=== PATIENT | male | born 1940 | race Two or more races ===

== ENCOUNTER 2023-09-10 12:49 | Outpatient (REF) | payer MEDICAID, SELFPAY ==
[2023-09-10 13:06] LABS: MANUAL DIFF FLAG NO
[2023-09-10 13:45] LABS: Basophils Absolute Auto 0.1 X10*3/uL (0.0-0.2); Basophils Percent Auto 0.9 % (0-2); Eosinophils Absolute Auto 0.2 X10*3/uL (0.0-0.4); Eosinophils Percent Auto 2.3 % (0-4); Hematocrit 35.7 % (42.0-52.0); Hemoglobin 12.7 g/dl (14.0-18.0); Imm Gran Abs Auto 0.04 X10*3/uL (0.00-0.03); Imm Gran Pct Auto 0.6 % (0.0-0.4); Lymphocytes Absolute Auto 1.5 X10*3/uL (1.2-4.9); Lymphocytes Percent Auto 22.3 % (20-40); Mean Corpuscular HGB Conc 35.6 g/dl (31.0-36.0); Mean Corpuscular Hemoglobin 31.3 pg (27.0-33.0); Mean Corpuscular Volume 87.9 fL (80.0-98.0); Mean Platelet Volume 9.1 fL (9.4-12.4); Monocytes Absolute Auto 0.9 X10*3/uL (0.1-1.2); Monocytes Percent Auto 12.8 % (2-11); Neutrophils Absolute Auto 4.2 x10*3/uL (2.0-8.3); Neutrophils Percent Auto 61.1 % (45-73); Platelet Count 243 X10*3/uL (160-400); Red Blood Count 4.06 X10*6/uL (4.60-5.80); Red Cell Distribution Width 13.2 % (11.0-16.0); White Blood Count 6.8 X10*3/uL (4.8-10.8)
== END 2023-09-10 12:50 | disposition home or self-care (01) ==
LOC: HO.LAB 12:49
PROVIDERS: Visit Provider Psychiatry & Neurology Neurology
DX: G70.00 Myasthenia gravis without (acute) exacerbation (principal)
CPT/HCPCS: 36415; 85025

== ENCOUNTER 2024-07-02 15:09 | Outpatient (REF) | payer MEDICAID, SELFPAY ==
[2024-07-02 15:42] LABS: MANUAL DIFF FLAG NO
[2024-07-02 15:50] LABS: Basophils Percent Auto 0.5 % (0-2); Eosinophils Absolute Auto 0.3 X10*3/uL (0.0-0.4); Eosinophils Percent Auto 4.6 % (0-4); Hematocrit 35.6 % (42.0-52.0); Hemoglobin 12.2 g/dl (14.0-18.0); Imm Gran Abs Auto 0.09 X10*3/uL (0.00-0.03); Imm Gran Pct Auto 1.4 % (0.0-0.4); Lymphocytes Absolute Auto 1.1 X10*3/uL (1.2-4.9); Lymphocytes Percent Auto 16.9 % (20-40); Mean Corpuscular HGB Conc 34.3 g/dl (31.0-36.0); Mean Corpuscular Hemoglobin 31.9 pg (27.0-33.0); Mean Corpuscular Volume 93.2 fL (80.0-98.0); Mean Platelet Volume 9.3 fL (9.4-12.4); Monocytes Absolute Auto 0.9 X10*3/uL (0.1-1.2); Monocytes Percent Auto 14.2 % (2-11); Neutrophils Absolute Auto 4.1 x10*3/uL (2.0-8.3); Neutrophils Percent Auto 62.4 % (45-73); Platelet Count 207 X10*3/uL (160-400); Red Blood Count 3.82 X10*6/uL (4.60-5.80); Red Cell Distribution Width 13.6 % (11.0-16.0); White Blood Count 6.5 X10*3/uL (4.8-10.8)
--- OUTSIDE RECORDS SUMMARY | 2024-07-02 17:44 | XMS_ITS | Clinical Summary ---
Author Organization [facility] Address [address] [address] Phone Care Team Providers Care New Vehicle Sales Consultant Name Role Phone Deb Harp Primary Care Provider [phone] Allergies Active Allergy Reactions Criticality Noted Date Comments Valsartan Other (see comments) 07/26/2022 hyponatremia Medications tamsulosin (FLOMAX) 0.4 MG 24 hr capsule Take 0.8 mg by mouth 1 (one) time each day 07/20/2022 Active SODIUM CHLORIDE PO Take 1,000 mg by mouth 3 times a day 07/31/2022 Active predniSONE (DELTASONE) 20 MG tablet Take 15 mg by mouth in the morning and 15 mg in the evening. Active pantoprazole (PROTONIX) 40 MG EC tablet Take 40 mg by mouth 07/20/2022 Active levothyroxine (SYNTHROID, LEVOTHROID) 25 MCG tablet Take 25 mcg by mouth 07/20/2022 Active cyanocobalamin (VITAMIN B-12) 1000 MCG tablet Take 1,000 mcg by mouth in the morning. Active atorvastatin (LIPITOR) 10 MG tablet Take 10 mg by mouth 07/20/2022 Active ALPRAZolam (XANAX) 0.25 MG tablet Take 0.25 mg by mouth 07/20/2022 Active acetaminophen (TYLENOL) 325 MG tablet Take 650 mg by mouth 07/24/2022 Active pyridostigmine (MESTINON) 60 MG tablet Take 60 mg by mouth in the morning and 60 mg in the evening and 60 mg before bedtime. Active cetirizine (ZyrTEC) 10 MG tablet Take 10 mg by mouth in the morning. 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 Immunizations Immunization Administration Dates Next Due SARS-CoV-2, Unspecified 11/29/2021 Social History Tobacco Use Types Packs/Day Years Used Date Smoking Tobacco: Never Assessed Sex and Gender Information Value Date Recorded Sex Assigned at Not on file Legal Sex Male 1:26 PM EDT Gender Identity Not on file Sexual Orientation Not on file Last Filed Vital Signs Vital Sign Reading Time Taken Comments Blood Pressure 119/58 11/12/2023 9:12 AM EDT Pulse 78 11/12/2023 9:12 AM EDT Temperature - - Respiratory Rate - - Oxygen Saturation 99% 11/12/2023 9:12 AM EDT Inhaled Oxygen Concentration - - Weight 77.9 kg (171 lb 12.8 oz) 11/12/2023 9:12 AM EDT Height - - Body Mass Index - - Plan of Treatment Upcoming Encounters Date Type Department Care Team (Late st Contact Info) Description 07/18/2024 10:15 AM EDT Office Visit [facility] [address] [phone] Walter Falk MD [address] [address] Health Maintenance Due Date Last Done Comments Pneumococcal Vaccine: 50+ Ye ars (1 of 2 - PCV) 1959 Influenza Vaccine (Season Ended) 2024 Hepatitis B Vaccine Aged Out No longe r eligible based on patient's age to complete this topic [place] Care Teams New Vehicle Sales Consultant Relationship Specialty Start Date End Date Deb Harp [address] [place] [address] PCP - General 11/12/23
--- OUTSIDE RECORDS SUMMARY | 2024-07-02 17:44 | XMS_ITS | Clinical Summary ---
Author Organization [facility] Address [address] [place] [address] Care Team Providers Care Electrical Sign Wirer Helper Name Role Phone Deb Harp Primary Care Provider Source Comments PLEASE NOTE, if this patient is a minor, it may be UNLAWFUL to discuss sensitive information that is contained in these records (such as FAMILY PLANNING, MENTAL HEALTH or SUBSTANCE ABUSE) with the minor patient's parent or other person without the patient's specific authorization.[facility] Allergies Active Allergy Reactions Criticality Noted Date Comments Valsartan Other (See Comments) 07/26/2022 hyponatremia Medications cyanocobalamin (VITAMIN B-12) 1,000 mcg tabletIndicatio ns:prevention of vitamin B12 deficiency Take 1,000 mcg by mouth once daily Indications: prevention of vitamin B12 deficiency Active ASPIRIN, BULK, MISC 75 mg by miscellaneous route Active ALPRAZolam (XANAX) 0.25 mg tabletIndicatio ns:anxiety with depression Take 0.25 mg by mouth nightly at bedtime Indications: anxiousness associated with depression Active pyridostigmine (MESTINON) 60 mg tabletIndicatio ns:myasthenia gravis Take 60 mg by mouth 2 (two) times daily Indications: myasthenia gravis, a skeletal muscle disorder Active ACETYLCARNITINE ORAL Take by mouth Active acetaminophen (TYLENOL) 500 mg tablet Take 1 Tablet by mouth every 6 (six) hours as needed for pain 30 Tablet 3 Active tamsulosin (FLOMAX) 0.4 mg 24 hr capsuleIndicati ons:benign prostatic hyperplasia with lower urinary tract sx Take 1 Capsule by mouth once daily Indications: enlarged prostate with urination problem 90 Capsule 1 4 Active azaTHIOprine (IMURAN) 50 mg tablet Take 50 mg by mouth once daily Active levothyroxine (TIROSINT) 37.5 mcg cap Take only one 37.5 mcg capsule by mouth daily. 90 Capsule 4 Active metoprolol succinate XL (TOPROL-XL) 25 mg 24 hr tablet Take 1 Tablet by mouth once daily 90 Tablet 3 4 025 Active valsartan (DIOVAN) 40 mg tablet Take 1 Tablet by mouth 2 (two) times daily 180 Tablet 3 4 025 Active diclofenac sodium (VOLTAREN) 1 % gelIndications: Pain of right upper extremity APPLY TOPICALLY TWICE A DAY 100 g 3 4 Active atorvastatin (LIPITOR) 10 mg tablet TAKE 1 TABLET BY MOUTH EVERY DAY 90 Tablet 4 Active Active Problems Problem Noted Date Diagnosed Date Incidental pulmonary nodule, > 3mm and < 8mm 05/2022 Overview (11/19/2022): On CT. Right middle lobe, measuring upto 6 mm. 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 CKD 3a: HTN renal dis vs other 3. MG 4. Metabolic Bone Disease of CKD: cont to track CA, Phos, HCO3, PTH and vit D levels and treat accordingly PLAN: recheck Snaand if < 130 then restart Urea 15gm bid; track renal func; avoid Ntoxins Goal is to maintain Sna > 130 Essential hypertension 07/18/2022 Myasthenia gravis (HCC-CMS) 07/18/2022 Hyperlipidemia 12/30/2021 Cataract 12/30/2021 Benign gastrointestinal stromal tumor (GIST) Immunizations Immunization Administration Dates Next Due Flu, Adjuvant, 65y+ (Fluad) 12/08/2022, Social History Tobacco Use Types Packs/Day Years Used Date Smoking Tobacco: Former Cigarettes Passive Smoke Exposure: Never Smokeless Tobacco: Never Tobacco Cessation:Counseling Given: Not Answered Alcohol Use Standard Drinks/Week Comments Never 0 (1 standard drink = 0.6 oz pur e alcohol) Social Connections Answer Date Recorded Connectedness 0 12/11/2023 Financial Resource Strain Answer Date R ecorded Financial Resource Strain 0 2021 Stress Answer Date Recorded Stress 0 12/21/2021 Physical Activity Answer Date Recorded Physical Activity 0 12/21/2021 Food Insecurity Answer Date Recorded Food 0 12/13/2023 Transportation Needs Answer Date Record ed Transportation 0 12/21/2021 Housing Stability Answer Date Recorded Housing 0 12/21/2021 Safety and Environment Answer Date Agustin rded Safety 0 12/21/2021 Utilities Answer Date Recorded Utilities 0 12/21/2021 Employment Answer Date Recorded Stress 0 12/11/2023 Sex and Gender Information Value Date Recorded Sex Assigned at Male 12/30/2021 12:19 PM PDT Legal Sex Male 1:01 PM PDT Gender Identity Male 12/30/2021 12:19 PM PDT Sexual Orientation Straight 12/30/2021 12 :19 PM PDT Last Filed Vital Signs Vital Sign Reading Time Taken Comments Blood Pressure 90/50 11/21/2023 10:22 AM EDT Pulse 85 11/21/2023 10:22 AM EDT Temperature 36.6 ??C (97.8 ??F) 11/21/2023 10:22 AM E DT Respiratory Rate 16 11/21/2023 10:22 AM EDT Oxygen Saturation 100% 11/21/2023 10:22 AM EDT Inhaled Oxygen Concentration - - Weight 77.1 kg (170 lb) 11/21/2023 10:22 AM EDT Height 177.8 cm (5' 10 ) 11/21/2023 10:22 AM EDT Body Mass Index 24.39 11/21/2023 10:22 AM EDT Plan of Treatment Upcoming Encounters Date Type Department Care Team (Late st Contact Info) Description 07/30/2024 10:40 AM EDT Office Visit [facility] [address] [place] [phone] Amanda Dang MD [address] [place] [address] Health Maintenance Due Date Last Done Comments Advanced Care Planning 1940 Imm-DTaP/Tdap/Td (1 - Tdap) 1961 Oet-TTCUK-40 (3 - Pfizer ris k series) 01/05/2023 12/08/2022, 11/29/2021 Annual Preventive Care Visit 07/19/2023 07/18/2022 Imm-Zoster, Recombinant (2 of 2) 01/24/2024 11/29/19 Alcohol and Drug Screen 03/19/2024 09/06/19 24, 07/18/2022, 12/30/2021 Depression Annual Screen 03/19/2024 09/19/2023, 08/18 Falls Prevention 09/05/2024 09/06/2023, 04/2022, 07/18/2022 TSH Monitoring 09/05/2024 09/06/2023, 06/0 05/2023, 07/06/2023, Additional history exists Diabetes Screening 09/18/2024 09/19/2023, 0 07/06/2023, 12/18/2022, Additional history exists Tobacco Screening 10/16/2024 10/17/2023, 07/18/2022 Imm-Pneumococcal 65+ Completed 09/08/2023 Imm-Influenza Completed 11/07/2023, 11/18, 11/29/2021 Procedures Procedure Name Priority Date/Time Associated Diagnosis Comments HEALTH HISTORY SCANNED DOCUMENT 06/24/2024 3:00 AM EDT COMPREHENSIVE METABOLIC PANEL Routine 09/19/2023 1:53 PM EDT Annual physical exam Syndrome of inappropriate secretion of antidiuretic hormone (HCC-CMS) THYROID PANEL WITH TSH Routine 09/06/2023 4:14 PM EDT Other specified hypothyroidism from Last 3 Months or Most Recently Relevant to Health Maintenance Results * HEALTH HISTORY SCANNED DOCUMENT (06/24/2024 3:00 AM EDT) 06/24/2024 3:00 AM EDT [facility] Provider Default SCAN OTHER ORDERS Final Re sult * (ABNORMAL) COMPREHENSIVE METABOLIC PANEL (09/19/2023 1:53 PM EDT) GLUCOSE 99 65 - 99 mg/dL [facility] Comment: ?Fasting reference interval UREA NITROGEN (BUN) 16 7 - 25 mg/dL [employer] CREATININE (blood) 1.38(H) 0.70 - 1.22 mg/dL [facility] EGFR 51(L) > OR = 60 mL/min/1. 73m2 [facility] BUN/CREATININE RATIO 12 6 - 22 (calc) [facility] SODIUM 131(L) 135 - 146 mmol/L [employer] POTASSIUM 4.6 3.5 - 5.3 mmol/L [facility] CHLORIDE 98 98 - 110 mmol/L [facility] CARBON DIOXIDE 28 20 - 32 mmol/L [facility] CALCIUM 9.0 8.6 - 10.3 mg/dL [facility] PROTEIN, TOTAL 6.6 6.1 - 8.1 g/dL [facility] ALBUMIN 4.4 3.6 - 5.1 g/dL [facility] GLOBULIN 2.2 1.9 - 3.7 g/dL (calc) [facility] ALBUMIN/GLOBULI N RATIO 2.0 1.0 - 2.5 (calc) [facility] BILIRUBIN, TOTAL 0.7 0.2 - 1.2 mg/dL [facility] ALKALINE PHOSPHATASE 61 35 - 144 U/L [facility] AST 16 10 - 35 U/L [facility] ALT 8(L) 9 - 46 U/L [employer] Blood Blood / Unknown 09/19/2023 1 :53 PM EDT 09/19/2023 1:53 PM EDT Narrative [employer] - 09/20/2023 5:03 PM EDT COLLECTION KIT GIVEN TO PATIENT. PATIENT ADVISED TO RETURN. Deb ACEVES [facility] - BLOOD DRAW Final Result Performing Organization Address [facility]/ZIP Co de Phone Number [email or web address] [address] [address], [employer] [address] [phone] * (ABNORMAL) THYROID PANEL WITH TSH (09/06/2023 4:14 PM EDT) TSH 6.76(H) 0.40 - 4.50 mIU/L [facility] [place] Accountable T-3 UPTAKE 32 22 - 35 % [facility] [place] Accountable T-4 (THYROXINE), TOTAL 6.7 4.9 - 10.5 mcg/dL [employer] [place] Accountable FREE T4 INDEX (T7) 2.1 1.4 - 3.8 [facility] [employer] [place] Accountable Blood Blood / Unknown 09/06/2023 4 :14 PM EDT 09/06/2023 4:15 PM EDT Amanda Dang MD LAB - BLOOD DRAW Final Result Performing Organization Address [facility]/ZIP Co de Phone Number [employer] [address] [address], [employer] [address] [phone] from Last 3 Months or Most Recently Relevant to Health Maintenance [place] Care Teams Electrical Sign Wirer Helper Relationship Specialty Start Date End Date Deb Harp PA [address] [place] [address] PCP - General Primary Care 06/21/23
== END 2024-07-02 15:10 | disposition home or self-care (01) ==
LOC: HO.LAB 15:09
PROVIDERS: PCP Student in an Organized Health Care Education/Training Program; Visit Provider Psychiatry & Neurology Neurology
DX: G47.00 Insomnia, unspecified (principal)
CPT/HCPCS: 36415; 85025

== ENCOUNTER 2025-01-05 14:41 | Outpatient (AMB) | payer MEDICAID, SELFPAY ==
--- OUTSIDE RECORDS SUMMARY | 2024-12-31 15:45 | XMS_ITS | Encounter Summary ---
Author Organization [facility] Address [address] [address] Phone Care Team Providers Care Residential Sales Rep Name Role Phone Deb Hapr Primary Care Provider [phone] Encounter Details Date Type Department Care Team (Latest Contact Info) Description 12/31/2024 3:45 PM EDT Office Visit [facility]. 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); Hyponatremia Social History Tobacco Use Types Packs/Day Years Used Date Smoking Tobacco: Never Smokeless Tobacco: Never Tobacco Cessation:Counseling Given: Not Answered Alcohol Use Standard Drinks/Week Comments Never 0 (1 standard drink = 0.6 oz pur e alcohol) Sex and Gender Information Value Date Recorded Sex Assigned at Not on file Legal Sex Male 1:26 PM EDT Gender Identity Not on file Sexual Orientation Not on file documented as of this encounter Last Filed Vital Signs Vital Sign Reading Time Taken Comments Blood Pressure 142/62 12/31/2024 4:06 PM EDT Pulse 69 12/31/2024 4:06 PM EDT Temperature - - Respiratory Rate - - Oxygen Saturation 99% 12/31/2024 4:06 PM EDT Inhaled Oxygen Concentration - - Weight 78.2 kg (172 lb 6.4 oz) 12/31/2024 4:06 P M EDT Height - - Body Mass Index - - documented in this encounter Patient Instructions * Patient Instructions* Walter Falk MD - 12/31/2024 3:45 PM EDT No NSAIDS - Do not take non-steroidal anti-inflammatory medications (NSAIDS) such as Ibuprofen (Advil, Motrin, etc), Naproxen (Aleve, etc), Celecoxib (Celebrex) or Ketoprofen. These common arthritis medications can cause permanent kidney damage or worsen your kidney damage. For mild occasional pain, Acetaminophen (Tylenol, etc) is safe for your kidneys. Sodium and Your CKD Diet: How to Spice Up Your Cooking What is sodium? Sodium is a mineral found naturally in foods and is the major part of table salt. What are the effects of eating too much sodium? When your kidneys are not healthy, extra sodium and fluid build up in your body. This can cause swollen ankles, puffiness, a rise in blood pressure, shortness of breath, and/or fluid around your heart and lungs. See the following table for suggestions on how to reduce sodium in your diet. LIMIT THE [AMOUNT OF... FOOD TO LIMIT BECAUSE OF THEIR HIGH SODIUM CONTENT ACCEPTABLE SUBSTITUTES SALT & SALT SEASONINGS Table salt Seasoning salt Garlic salt Onion salt Celery salt Lemon pepper Lite salt Meat tenderizer Bouillon cubes Flavor enhancers Fresh garlic, fresh onion, garlic powder, onion powder, black [pepper, lemon juice, low-sodium/salt-free seasoning blends, vinegar SALTY FOODS Barbecue sauce Steak sauce Soy sauce Teriaky sauce Oyster sauce Salted Snacks such as Crackers Potato chips Thompsons chips Pretzels Tortilla chips Nuts Popcorn Chouteau seeds Homemade or low- sodium sauces and salad dressings; Vinegar, dry mustard, unsalted popcorn, pretzels, tortilla or corn chips Cured Foods Ham Salt pork Lisa Sauerkraut Pickles, pickle relish Lox & [place] Olives Fresh beef, veal, pork, poultry, fish, eggs [place] MEATS Hot Dogs Cold cuts, deli meats Pastrami Sausage Corned beef Spam Low-salt deli meats PROCESSED FOODS Buttermilk Cheese Canned: Soups Tomato products Vegetable juices Canned vegetables Convenience Foods such as: TV Dinners Canned raviolis [place] Macaroni & Cheese Spaghetti Frozen prepared foods Fast foods Natural cheese (1-2 oz Per week) Homemade or evita,1- sodium soups, canned food without added salt Homemade casseroles without added salt, made with fresh or raw vegetables, fresh meat, willie, pasta, or unsalted canned vegetables Some salt or sodium is needed for body water balance. But when your kidneys lose the ability to control sodium and water balance, you may experience the following: thirst fluid gain high blood pressure discomfort during dialysis By using less sodium in your diet, you can control these problems. Hints to keep your sodium intake down Cook with herbs and spices instead of salt. (Refer to Spice Up Your Cooking section for further suggestions.) Read food labels and choose those foods low in sodium. Avoid salt substitutes and specialty low-sodium foods made with salt substitutes because they are high in potassium. When eating out, ask for meat or fish without salt. Ask for gravy or sauce on the side; these may contain large amounts of salt and should be used in small amounts . Limit use of canned, processed and frozen foods. Some information about reading labels Understanding the terms: Sodium Free - Only a trivial amount of sodium per serving. Very Low Sodium - 35 mg or less per serving. Low Sodium - 140 mg or less per serving. Reduced Sodium - Foods in which the level of sodium is reduced by 25%. Light or Lite in Sodium - Foods in which the sodium is reduced by at least 50% . Simple rule of thumb : If salt is listed in the first five ingredients, the item is probably too high in sodium to use. All food labels now have milligrams (mg) of sodium listed. Follow these steps when reading the sodiwn information on the label: 1. Know how much sodium you are allowed each day. Remember that there are 1000 milligrams (mg) in 1gram. For [id number], if your diet prescription is 2 grams of sodium , your limit is 2000 milligrams per day. Consider the sodium value or other food to be eaten during the day. 2. Look at the package label. Check the serving size. Nutrition values are expressed per av g. How does this compare to your total daily allowance? If the sodium level is 500 mg or more per serving, the item is not a good choice. 3. Compare labels of similar products. Select the lowest sodium level for the same serving size. How to Spice Up Your Cooking Giving up salt does not mean giving up flavor. Learn to season your food with herbs and spices. Be creative and experiment for a new and exciting flavor. What kinds of spices and herbs should I use instead of salt to add flavor? Try the following spices with the foods listed. Allspice: Use with beef, fish, beets, cabbage, canots, peas, fruit. Basil: Use with beef, pork, most vegetables. [place]: Use with beef, pork, most vegetables. Bertha: Use with beef, pork, green beans, cauliflower, cabbage, beets, asparagus, and in dips and marinades. Cardamom: Use with fruit and in baked goods. [place]: Use with beef, chicken, pork, fish, green beans, carrots and in marinades. Dill: Use with beef, chicken, green beans, cabbage, carrots, peas and in dips. Kenisha: Use with beef, chicken, pork, green beans, cauliflower and eggplant. Marjoram: Use with beef, chicken, pork, green beans, cauliflower and eggplant. Adelina: Use with chicken, pork, cauliflower, peas and in marinades. Thyme: Use with beef, chicken, pork, fish, green beans, beets and carrots. Dangelo: Use with chicken, pork, eggplant and in dressing. Tarragon: Use with fish, chicken, asparagus, beets, cabbage, cauliflower and in marinades. Tips for cooking with herbs and spices Purchase spices and herbs in small amounts . When they sit on the shelf for years they lose their flavor. Use no more than ?? teaspoon of dried spice (?? of fresh) per pound of meat. Add ground spices to food about 15 minutes before the end of the cooking period. Add whole spices to food at least one hour before the end of the cooking period. Combine herbs with oil or butter, set for 30 minutes to bring out their flavor, then brush on foodswhile they cook, or brush meat with oil and sprinkle herbs one hour before coolcing. Crush dried herbs before adding to foods. Can I use salt substitutes? Caution! If you are told to limit potassium in your diet, be very cautious about using salt substitutes because most of them contain some form of potassium. Check with your doctor or dietitian beforeusing and salt substitute. [place] and create your own seasoning containing those spices that you like. If you would like to become a volunteer and find out more about what's happening where you live, contact your local [facility] Affiliate. Blood pressure monitoring education: Monitor home blood pressure values after sitting for 5 minutes with back and arm support. Keep a log. Bring your log and blood pressure cuff to your next visit. documented in this encounter Progress Notes * Walter Falk MD - 12/31/2024 3:45 PM EDT Images from the original note were not included. Patient Name: Jonatan Oropeza, Male Date of : 1940, 84 y.o. Date: 12/31/24 [] New Patient [x] Established Patient [] New Hospital Follow Up [] Established Hospital Follow Up [] Telemed Visit [] H&P Referring MD: No primary care provider on file. PCP: Deb Harp Reason For Visit: CKD 3, HypoNa Jonatan Oropeza is a 84 y.o. male seen today in f/u re: h/o CKD 3 and epsiode of hypoNa in past. Since last seen he was doing well until last belkis when he had repeat Sna decr 128 and we started him back on NaCl tab 1 gm 3x/day He had been off the NaCL tabs for sev months He is disciplined on the 1500/24 hr fluid restriction Accompanied bu daughter. Overrall doing ok. Per PT home BP doing well. PMH as noted and includes MG ( sees Dr Reid) and also cont f/u with Cards ( Dr Dang) Avoids drinking exces fluids. Denies chest pain or shortness of breath. No blood in the urine or difficulties urinating. Complains of mild arthritic complaints but avoids use of NSAIDs. The following portions of the patient's chart were reviewed in this encounter and updated as appropriate: Meds Surg Hx Fam Hx Constitutional: Negative for chills and fever. Respiratory: Negative for cough and shortness of breath. Cardiovascular: Negative for chest pain, palpitations and leg swelling. Gastrointestinal: Negative for abdominal pain, nausea and vomiting. Genitourinary: Negative for dysuria, frequency, hematuria and urgency. Full 13 point review of systems unremarkable except as noted above. Past Medical History: Diagnosis Date Essential hypertension Hyposmolality and/or hyponatremia Other and unspecified hyperlipidemia History reviewed. No pertinent surgical history. Social History Tobacco Use Smoking status: Never Smokeless tobacco: Never Substance Use Topics Alcohol use: Never History reviewed. No pertinent family history. Current Outpatient Medications Medication Sig Dispense Refill acetaminophen (TYLENOL) 325 MG tablet Take 650 mg by mouth ALPRAZolam (XANAX) 0.25 MG tablet Take 0.25 mg by mouth atorvastatin (LIPITOR) 10 MG tablet Take 10 mg by mouth cetirizine (ZyrTEC) 10 MG tablet Take 10 mg by mouth in the morning. cyanocobalamin (VITAMIN B-12) 1000 MCG tablet Take 1,000 mcg by mouth in the morning. levothyroxine (SYNTHROID, LEVOTHROID) 25 MCG tablet Take 25 mcg by mouth pantoprazole (PROTONIX) 40 MG EC tablet Take 40 mg by mouth predniSONE (DELTASONE) 20 MG tablet Take 15 mg by mouth in the morning and 15 mg in the evening. pyridostigmine (MESTINON) 60 MG tablet Take 60 mg by mouth in the morning and 60 mg in the evening and 60 mg before bedtime. sodium chloride 1 g tablet Take 1 tablet (1 g total) by mouth in the morning and 1 tablet (1 g total) at noon and 1 tablet (1 g total) in the evening. 270 tablet 0 tamsulosin (FLOMAX) 0.4 MG 24 hr capsule Take 0.8 mg by mouth 1 (one) time each day valsartan (Diovan) 40 MG tablet Take 1 tablet (40 mg total) by mouth 1 (one) time each day (Patienttaking differently: Take 40 mg by mouth in the morning and 40 mg in the evening. 20 mg in the morning 40 mg in the evening .) 30 tablet 11 No current facility-administered medications for this visit. Allergies Allergen Reactions Valsartan Other (see comments) hyponatremia Objective: Vitals: 12/31/24 1606 BP: 142/62 Pulse: 69 SpO2: 99% Weight: 172 lb 6.4 oz (78.2 kg) 136/70 Vitals reviewed. Constitutional: No distress. Cardiovascular: Normal rate, regular rhythm and normal heart sounds. He exhibits no edema. Pulmonary/Chest: Effort normal and breath sounds normal. No respiratory distress. Abdominal: Soft. There is no abdominal tenderness. No hernia. Skin: Skin is warm and dry. Psychiatric: He has a normal mood and affect. His behavior is normal. No results found for: EGFRAFR Est GFR Non Date Value Ref Range Status 10/12/2022 64 ML/MIN/1.73 M2 Final Comment: Creatinine based estimated glomerular filtration (eGFR) in adults is calculated using the National Kidney Foundation recommended 2020 CKD-EPI equation. Estimates GFR from serum creatinine, age and sex. Testing performed or reported by [facility], a Service of [facility], [address] [place] [address] Tejas Javier MD, Service Manager [facility]# [id number] Chemistry Lab Units 11/24/24 0834 07/18/24 1408 11/12/23 0943 09/19/23 1353 07/06/23 1030 CREATININE mg/dL 1.29* 1.28* 1.32* 1.38* 1.23* BUN mg/dL 14 15 16 16 15 BUN / CREAT RATIO (calc) 11 12 12 12 12 GLUCOSE mg/dL 112* 77 99 99 99 POTASSIUM mmol/L 4.6 4.6 4.5 4.6 4.8 SODIUM mmol/L 128* 132* 132* 131* 134* CO2 mmol/L 27 18* 24 28 27 CHLORIDE mmol/L 94* 97 96 98 99 ALBUMIN g/dL 5.0 4.4 4.6 4.4 4.2 BILIRUBIN TOTAL mg/dL 0.8 -- -- 0.7 0.8 AST U/L 20 -- -- 16 18 ALT U/L 10 -- -- 8* 11 Bone Mineral Lab Units 11/24/24 0834 07/18/24 1408 11/12/23 0943 09/19/23 1353 07/06/23 1030 CALCIUM mg/dL 9.7 8.9 9.3 9 8.9 PHOSPHORUS mg/dL -- 4.0 4.5* -- -- ALK PHOS U/L 54 -- -- 61 51 MAGNESIUM mg/dL -- 2.3 2.2 -- -- PTH pg/mL -- 33 24 -- -- VIT D 25 HYDROXY ng/mL -- 34.8 35.5 -- -- CBC Lab Units 07/18/24 1408 WBC AUTO x10E3/uL 6.4 RBC AUTO x10E6/uL 3.81* MCV fL 96 HEMATOCRIT % 36.7* HEMOGLOBIN g/dL 12.4* PLATELETS AUTO x10E3/uL 234 Urine Lab Units 07/18/24 1408 11/12/23 0943 PROT/CREAT RATIO UR mg/g creat 237* 117 ALB MG/G CREAT UR mg/g creat <10 32* Urine Lab Units 07/18/24 1408 11/12/23 0943 PH U 6.5 5.5 COLOR U Yellow Yellow GLUCOSE UR Negative Negative WBC UR HPF /hpf None seen 0-5 RBC UR HPF /hpf None seen 0-2 PROTEIN UR mg/dL 7.4 25.1 UROBILINOGEN UA mg/dL 0.2 0.2 PLAN: Assessment & Plan 84 Y/O M CKD 3 H/O CHRONIC 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 CKD 3a: HTN renal dis vs other 3. Metabolic Bone Disease of CKD: cont to track CA, Phos, HCO3, PTH and vit D levels and treat accordingly PLAN: cont Po NaCL tabs and recheck Sna and if < 130 then restart Urea 15gm bid; track renal func; cont Divaon 40 qd;; Goal is to maintain Sna > 130 Avoid NSIADs 1. Syndrome of inappropriate vasopressin secretion (HCC) 2. Hyponatremia Orders Placed This Encounter Renal function panel Urine Osmolality Uric acid Renal function panel Return in about 6 months (around 07/01/2025). Walter Falk MD documented in this encounter Plan of Treatment Upcoming Encounters Date Type Department Care Team (Late st Contact Info) Description 06/25/2025 11:30 AM EDT Office Visit [facility] [address] [facility] [address] [place] [phone] Walter Falk MD [address] [facility] [address] [place] [phone] Pending Results Name Type Priority Associated Diagnoses Date /Time Urine Osmolality Lab Routine Syndrome of inappropriate vasopressin secretion (HCC) Hyponatremia 01/03/2025 10:22 AM EDT Scheduled Orders Name Type Priority Associated Diagnoses Orde r Schedule Renal function panel Lab Routine Syndrome of inappropriate vasopressin secretion (HCC) Hyponatremia Every 4 Weeks for 6 Occurrences starting 12/31/2024 until 07/01/2025 documented as of this encounter Procedures Procedure Name Priority Date/Time Associated Diagnosis Comments OSMOLALITY, URINE Routine 01/03/2025 10: 22 AM EDT Syndrome of inappropriate vasopressin secretion (HCC) Hyponatremia URIC ACID Routine 01/03/2025 10:22 AM EDT Syndrome of inappropriate vasopressin secretion (HCC) Hyponatremia RENAL FUNCTION PANEL Routine 01/03/2025 10:22 AM EDT Syndrome of inappropriate vasopressin secretion (HCC) Hyponatremia documented in this encounter Results * Uric acid (01/03/2025 10:22 AM EDT) Uric Acid 4.9 3.8 - 8.4 mg/dL [facility] Comment:Therapeutic target f or gout patients: <6.0 Blood Venous blood / Unknown 01/03/2025 10:22 AM EDT 01/03/2025 us Walter Falk MD LAB BLOOD ORDERABLES Final Re sult [facility] [address] [place] [address] * (ABNORMAL) Renal function panel (01/03/2025 10:22 AM EDT) Glucose 88 70 - 99 mg/dL [facility] BUN 14 8 - 27 mg/dL [facility] Creatinine 1.25 0.76 - 1.27 mg/dL [facility] eGFR CKD-EPI CR 2020 57(L) >59 mL/min/1.7 3 [facility] BUN/Creatinine Ratio 11 10 - 24 [facility] Sodium 133(L) 134 - 144 mmol/L [facility] Potassium 4.8 3.5 - 5.2 mmol/L [facility] Chloride 98 96 - 106 mmol/L [facility] Bicarbonate (CO2) 23 20 - 29 mmol/L [facility] Calcium 8.7 8.6 - 10.2 mg/dL [facility] Phosphorus 3.8 2.8 - 4.1 mg/dL [facility] Albumin 4.4 3.7 - 4.7 g/dL [facility] Blood Venous blood / Unknown 01/03/2025 10:22 AM EDT 01/03/2025 us Walter Falk MD LAB BLOOD ORDERABLES Final Re sult [facility] [address] [place] [address] documented in this encounter Visit Diagnoses Diagnosis Syndrome of inappropriate vasopressin secretion (HCC)- Primary Hyponatremia documented in this encounter Care Teams Residential Sales Rep Relationship Specialty Start Date End Date KatiuskaDeb [address] [place] [address] PCP - General 11/12/23 documented as of this encounter
--- NOTE | 2025-01-05 15:01 | MHC.OFFVIS ---
Intake Visit Reasons: 6mnth/MG Allergies No Known Allergies Allergy (Verified 01/01/25 10:38) HPI Comments Details: 84 yo RH man from [facility] who developed intermittent double vision in 2021, starting having droopy eyelids and difficulty swallowing in June of 2022, was diagnosed with antibody + Myasthenia gravis. He is presenting with eye symptoms related to Myasthenia Gravis and management queries. He reports drooping of the left eyelid over the past three years, managed with Pyridostigmine and Azathioprine, successfully controlling Myasthenia Gravis related symptoms. However, dropout of Azathioprine leads to symptom recurrence. Additionally, he experiences peripheral neuropathic pain mainly in his lower extremities, previously managed with Pregabalin but now solely with Tylenol, which inadequately addresses the pain. Blood tests in June revealed mild anemia, with no apparent gastrointestinal bleed and a distant history of colonoscopy over 15 years ago. The patient reports frequent urination, presumably linked to an enlarged prostate. Review of Systems Narrative - Eyes: Reports eyelid ptosis. Denies dryness and double vision. - Neurologic: Reports peripheral neuropathic pain in the lower extremities; history of diplopia resolved. - Gastrointestinal: Denies any significant bleeding. Last colonoscopy over 15 years ago. - Genitourinary: Reports frequent urination. Physical Exam Neuro Other: Mental Status: Alert and oriented to person, place, and time. Normal attention. Normal spontaneous speech, fluency, and comprehension. No obvious issues with mood and memory. Affect is appropriate. Cranial Nerves: CN II: Visual waters full to confrontation, visual acuity intact. CN III, IV, : Pupils equal, round, reactive to light and accommodation. Extraocular movements are normal. CN V: Facial sensation is normal. CN VII: Facial movements symmetrical. CN VIII: Hearing intact to bedside conversation is normal. CN IX, X: Palate elevates symmetrically. CN XI: Shoulder shrug and head turn symmetrical. CN XII: Tongue midline without atrophy or fasciculations. Extrapyramidal: Full facial expressions and blinking. No rigidity. Movements are appropriate with no tremor or abnormality. Speech: Normal; no dysarthria or tremor. 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 07/12/23. ACR Ab titer in [facility] in 2022: 24.87B12 in [facility] in 2022: 619, T3/T4/TSH 0.8/5.7/6.9 CT chest in [facility] in 2022: no thymoma, pleuroparenchymal fibrotic band MRI brain in [facility] in Jun 2022: minimal MVD MRA brain and neck in [facility] in 2022: ok EMG/NCS in [facility] in Jun 2022: +decremental response. Code(s): G70.00 - Myasthenia gravis without (acute) exacerbation Category: Medical (2) Peripheral neuropathy: Code(s): G62.9 - Polyneuropathy, unspecified Category: Medical Qualifiers: Peripheral neuropathy type: polyneuropathy, unspecified Qualified Code(s): G62.9 - Polyneuropathy, unspecified Plan Impression: 1. Myasthenia gravis in remission 2. Peripheral neuropathy and associated neuropathic pain affecting his feet Recommendations 1. Pyridostigmine 60 mg twice a day 2. Azathioprine 50 mg twice a day 3. He is using Tylenol 1 tablet at night for pain instead of pregabalin. If needed pregabalin can be taken with Tylenol. I explained the management of Myasthenia Gravis and emphasized the importance of adherence to his regimen with Pyridostigmine and Azathioprine to prevent symptom recurrence. We discussed continuing Tylenol for neuropathic pain, with the option of adding Pregabalin if needed. For anemia, I recommended exploring dietary influences and assessing for gastrointestinal bleeding through primary care. Regarding frequent urination due to an enlarged prostate, I advised further consultation for potential therapeutic options to improve urinary symptoms. Medications: New pyridostigmine bromide 60 mg PO BID 180 tabs 1RF azathioprine 50 mg PO BID 180 tabs 1RF Coding Level of Care Code Est Pt Level 4 (72533) Diagnoses Myasthenia gravis G70.00 Peripheral polyneuropathy G62.9 Peripheral neuropathy type: polyneuropathy, unspecified
--- OUTSIDE RECORDS SUMMARY | 2025-01-05 18:32 | XMS_ITS | Clinical Summary ---
Author Organization [facility] Address [address] [place] [address] Care Team Providers Care Reel Fed Printer Name Role Phone Deb Harp Primary Care Provider [phone] Source Comments PLEASE NOTE, if this patient [...] urination problem 90 Capsule 1 4 Active metoprolol succinate XL (TOPROL-XL) 25 mg 24 hr tablet Take 1 Tablet by mouth once daily 90 Tablet 3 4 Active diclofenac sodium (VOLTAREN) 1 % gelIndications: Pain of right upper extremity APPLY TOPICALLY TWICE A DAY 100 g 3 4 Active atorvastatin (LIPITOR) 10 mg tablet TAKE 1 TABLET BY MOUTH EVERY DAY 90 Tablet 4 Active valsartan (DIOVAN) 40 mg tablet Take 0.5 Tablets by mouth once daily 45 Tablet 3 5 026 Active valsartan (DIOVAN) 40 mg tablet Take 1 Tablet by mouth once daily 90 Tablet 3 5 026 Active azaTHIOprine (IMURAN) 50 mg tablet Take 1 Tablet by mouth 2 (two) times daily 180 Tablet 3 5 0[address] Active aspirin [address] tablet Take 1 Tablet by mouth once daily 90 Tablet 3 5 026 Active levothyroxine 25 mcg tabletIndicatio ns:Hypothyroidi sm, unspecified type Take 1.5 Tablets by mouth every morning before breakfast. 180 Tablet 1 5 Active MISCELLANEOUS MEDICAL SUPPLY MISCIndications :Back pain, unspecified back location, unspecified back pain laterality, unspecified chronicity by miscellaneous route daily Dx: back pain, LAUREN: 99, raised toilet seat with bars. 1 Each 5 Active sodium chloride 1,000 mg TbSO Take 1 Tablet by mouth 3 (three) times daily. 270 Tablet 5 Active Active Problems Problem Noted Date Diagnosed Date Incidental pulmonary nodule, > 3mm and < 8mm 05/2022 Overview (11/19/2022): On CT. Right middle lobe, measuring upto 6 mm. 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 Low sodium levels 07/26/2022 Overview (09/27/2022): [...] > 130 Essential hypertension 07/18/2022 Myasthenia gravis 07/18/2022 Hyperlipidemia 12/30/2021 Cataract 12/30/2021 Benign gastrointestinal stromal tumor (GIST) Encounters Date Type Department Care Team Description 12/02/2024 Interim Notes [address] [address] Michael Long MA 11/24/2024 Results Follow-Up [address] [address] Derek Padilla PA-C 11/19/2024 3:00 PM EDT Office Visit [address] [address] Derek Padilla PA-C 10/28/2024 Interim Notes [address] [address] Nubia Browne MA from Last 3 Months Immunizations Immunization Administration Dates Next Due Flu, Adjuvant, 65y+ (Fluad) 12/08/2022, Influenza (FLUZONE), high-dose, trivalent, PF Social History Tobacco Use Types Packs/Day Years [...] Sign Reading Time Taken Comments Blood Pressure 110/70 11/19/2024 3:30 PM EDT Pulse 76 11/19/2024 3:30 PM EDT Temperature 36.7 C (98.1 F) 11/19/2024 3:30 PM EDT Respiratory Rate 16 11/19/2024 3:30 PM EDT Oxygen Saturation 99% 11/19/2024 3:30 PM EDT Inhaled Oxygen Concentration - - Weight 78.3 kg (172 lb 9.6 oz) 11/19/2024 3:30 P M EDT Height 177.8 cm (5' 10 ) 11/19/2024 3:30 PM EDT Body Mass Index 24.77 11/19/2024 3:30 PM EDT Plan of Treatment Upcoming Encounters Date Type Department Care Team (Late st Contact Info) Description 01/14/2025 9:20 AM EDT Office Visit [facility] [address] [place] [address] Amanda Dang MD [address] [place] [address] Health Maintenance Due Date Last Done Comments Advanced Care Planning 1940 Imm-DTaP/Tdap/Td (1 - Tdap) 1961 Aqu-[id number]-93 (3 - Pfizer ris k series) 01/05/2023 12/08/2022, 11/29/2021 Imm-Zoster, Recombinant (2 of 2) 01/24/2024 11/29/19 24 TSH Monitoring 07/30/2025 07/30/2024, 08/18, 08/20/2023, Additional history exists Annual Wellness (Adult): Indicated (All Coverage) 11/19/2025 11/19/2024, 07/18/2022 Falls Prevention 11/19/2025 11/19/2024, , 07/18/2022, Additional history exists Tobacco Screening 11/19/2025 11/19/2024, 07/18/2022 Diabetes Screening 12/03/2025 12/03/2024, 0 12/02/2024, 11/24/2024, Additional history exists Imm-Pneumococcal 50+ Completed 09/08/2023 Imm-RSV (adult) Completed 11/07/2023 Alcohol and Drug Screen Completed 09/03/19, 09/06/2023, 07/18/2022, Additional history exists Depression Annual Screen Completed 09/02/2024, 08/18 Imm-Influenza Completed 11/19/2024, 10/18, 12/08/2022, Additional history exists Procedures Procedure Name Priority Date/Time Associated Diagnosis Comments REFERRAL TO NEPHROLOGY Routine 3:00 AM EDT Stage 3a chronic kidney disease HEMOGLOBIN GLYCOSYLATED A1C Routine 12/02/2024 3:27 PM EDT Elevated random blood glucose level COMPREHENSIVE METABOLIC PANEL Routine 11/24/2024 8:34 AM EDT Encounter for annual physical exam Low sodium levels BLOOD COUNT COMPLETE AUTOMATED Routine 11/24/2024 8:34 AM EDT Encounter for annual physical exam RFLX-EXTRA SPECIMEN Routine 11/21/2024 7 :24 AM EDT URINE CULTURE W ID & SENS Routine 11/21/2024 7:24 AM EDT Dysuria URINALYSIS, MULTISTIX (POCT) Routine 11/19/2024 4:18 PM EDT Dysuria MEDICATIONS SCANNED DOCUMENT 10/23/2024 3:00 AM EDT OTHER ORDERS SCANNED DOCUMENT 10/06/2024 3:00 AM EDT THYROID PANEL WITH TSH Routine 11:18 AM EDT Hypothyroidism due to acquired atrophy of thyroid from Last 3 Months or Most Recently Relevant to Health Maintenance Results * REFERRAL TO NEPHROLOGY (12/31/2024 3:00 AM EDT) 12/31/2024 3:00 AM EDT us Derek Padilla PA-C REFERRAL Final Result * HEMOGLOBIN GLYCOSYLATED A1C Routine (12/02/2024 3:27 PM EDT) HEMOGLOBIN A1C 5.5 <5.7 % 12/03/2024 3:44 AM EDT [facility] Blood Blood / Unknown 12/02/2024 3 :27 PM EDT 12/03/2024 2:01 AM EDT Narrative [facility] - 12/03/2024 3:45 AM EDT FASTING:NO For the purpose of screening for the presence of diabetes: . <5.7% Consistent with the absence of diabetes 5.7-6.4% Consistent with increased risk for diabetes (prediabetes) > or =6.5% Consistent with diabetes . This assay result is consistent with a decreased risk of diabetes. . Currently, no consensus exists regarding use of hemoglobin A1c for diagnosis of diabetes in children. . According to [place] Diabetes Association (ADA) guidelines, hemoglobin A1c <7.0% represents optimal control in non- diabetic patients. Different metrics may apply to specific patient populations. Standards of Medical Care in Diabetes(ADA). . us Derek Padilla PA-C LAB - BLOOD DRAW Final Resul t [facility] [address] [place] [id number], [facility] [address] [place] [phone] * BLOOD COUNT COMPLETE AUTOMATED Routine (11/24/2024 8:34 AM EDT) [facility] WHITE BLOOD CELL COUNT 8.5 3.8 - 10.8 Thousand/u L 11/25/2024 4:51 AM EDT [facility] RED BLOOD CELL COUNT 4.23 4.20 - 5.80 Million/uL 11/25/2024 4:51 AM EDT [facility] HEMOGLOBIN 13.4 13.2 - 17.1 g/dL 11/25/2024 4:51 AM EDT [facility] HEMATOCRIT 40.7 38.5 - 50.0 % 11/25/2024 4:51 AM EDT [employer] [facility] MCV 96.2 80.0 - 100.0 fL 11/25/2024 4:51 AM EDT [facility] MCH 31.7 27.0 - 33.0 pg 11/25/2024 4:51 AM EDT [employer] [facility] MCHC 32.9 32.0 - 36.0 g/dL 11/25/2024 4:51 AM EDT [employer] [facility] RDW 13.9 11.0 - 15.0 % 11/25/2024 4:51 AM EDT [facility] PLATELET COUNT 289 140 - 400 Thousand/u L 11/25/2024 4:51 AM [employer]Drik [facility] MPV 9.3 7.5 - 12.5 fL 11/25/2024 4:51 AM [facility] Blood Blood / Unknown 11/24/2024 8 :34 AM EDT 11/25/2024 3:17 AM EDT Narrative [employer] [facility] - 11/25/2024 4:54 AM EDT FASTING:YES For adults, a slight decrease in the calculated MCHC value (in the range of 30 to 32 g/dL) is most likely not clinically significant; however, it should be interpreted with caution in correlation with other red cell parameters and the patient's clinical condition. us Derek Padilla PA-C LAB - BLOOD DRAW Final Resul t [employer] [address] [address], [employer] [address] [address] * (ABNORMAL) COMPREHENSIVE METABOLIC PANEL Routine (11/24/2024 8:34 AM EDT) GLUCOSE 112(H) 65 - 99 mg/dL 11/25/2024 3:56 AM [employer]Drik [facility] UREA NITROGEN (BUN) 14 7 - 25 mg/dL 11/25/2024 3:56 AM [employer] [facility] CREATININE (blood) 1.29(H) 0.70 - 1.22 mg/dL 11/25/2024 3:56 AM [employer]Drik [facility] EGFR 55(L) > OR = 60 mL/min/1. 73m2 11/25/2024 3:56 AM [employer] [facility] BUN/CREATININE RATIO 11 6 - 22 (calc) 11/25/2024 3:56 AM [employer] [facility] SODIUM 128(L) 135 - 146 mmol/L 11/25/2024 3:56 AM [employer] [facility] POTASSIUM 4.6 3.5 - 5.3 mmol/L 11/25/2024 3:56 AM [employer] [facility] CHLORIDE 94(L) 98 - 110 mmol/L 11/25/2024 3:56 AM [employer] [facility] CARBON DIOXIDE 27 20 - 32 mmol/L 11/25/2024 3:56 AM [employer] [facility] CALCIUM 9.7 8.6 - 10.3 mg/dL 11/25/2024 3:56 AM [employer] [facility] PROTEIN, TOTAL 7.7 6.1 - 8.1 g/dL 11/25/2024 3:56 AM [employer] [facility] ALBUMIN 5.0 3.6 - 5.1 g/dL 11/25/2024 3:56 AM [employer] [facility] GLOBULIN 2.7 1.9 - 3.7 g/dL (calc) 11/25/2024 3:56 AM [employer] [facility] ALBUMIN/GLOBULI N RATIO 1.9 1.0 - 2.5 (calc) 11/25/2024 3:56 AM [employer] [facility] BILIRUBIN, TOTAL 0.8 0.2 - 1.2 mg/dL 11/25/2024 3:56 AM [employer] [facility] ALKALINE PHOSPHATASE 54 35 - 144 U/L 11/25/2024 3:56 AM [employer] [facility] AST 20 10 - 35 U/L 11/25/2024 3:56 AM EDT [employer] [facility] ALT 10 9 - 46 U/L 11/25/2024 3:56 AM EDT [employer] [facility] Blood Blood / Unknown 11/24/2024 8 :34 AM EDT 11/25/2024 2:31 AM EDT Narrative [employer] [facility] - 11/25/2024 3:59 AM EDT FASTING:YES . Fasting reference interval . For someone without known diabetes, a glucose value between 100 and 125 mg/dL is consistent with prediabetes and should be confirmed with a follow-up test. . us Derek Padilla PA-C LAB - BLOOD DRAW Final Resul t Performing Organization Address [facility] Co de Phone Number [employer] [address] [address], [employer] [address] [phone] * RFLX-EXTRA SPECIMEN Routine (11/21/2024 7:24 AM EDT) EXTRA TUBE RECEIVED SEE NOTE 11/21/2024 7:24 AM EDT [employer] [facility] SPECIMEN TYPE RECEIVED Urinalysis Vial 11/21/2024 7:24 AM EDT [employer] [facility] 11/21/2024 7:24 AM EDT 11/21/2024 7:24 AM EDT Narrative [employer] [facility] - 11/21/2024 7:57 AM EDT NO COLLECTION DATE RECEIVED. WE HAVE USED THE DATE THE SPECIMEN WAS RECEIVED BY THIS LABORATORY THE COLLECTION DATE. IF THIS IS INCORRECT, PLEASE CONTACT CLIENT SERVICES. . PHONE NUMBER: An extra specimen was received with no test requested. The specimen will be maintained in storage in case additional testing is needed. Please call the client service department for further assistance. . us Derek Padilla PA-C LAB - NO BLOOD DRAW Final Re sult Performing Organization Address City/[facility]/ZIP Co de Phone Number [employer] [address] [address], [employer] [address] [phone] * URINE CULTURE W ID & SENS Urine Urine Routine (11/21/2024 7:24 AM EDT) Pathologist [facility] Micro Number [id number] 11/22/2024 12:22 PM EDT [facility] SPECIMEN QUALITY Adequate 11/22/2024 12:22 PM EDT [facility] SOURCE: URINE 11/22/2024 12:22 PM EDT [facility] STATUS: FINAL 11/22/2024 12:22 PM EDT [facility] RESULT No Growth 11/22/2024 12:22 PM EDT [facility] Urine Urine specimen / Unknown 11/21/2024 7:24 AM EDT 11/21/2024 7:24 AM EDT Narrative [facility] - 11/22/2024 12:25 PM EDT NO COLLECTION DATE RECEIVED. WE HAVE USED THE DATE THE SPECIMEN WAS RECEIVED BY THIS LABORATORY THE COLLECTION DATE. IF THIS IS INCORRECT, PLEASE CONTACT CLIENT SERVICES. . PHONE NUMBER: us Derek Padilla PA-C LAB - MICROBIOLOGY AMBULATOR Y Final Result [facility] [address] [place] [address], [employer] [address] [address] * (ABNORMAL) URINALYSIS, MULTISTIX (POCT) Urine Routine (11/19/2024 4:18 PM EDT) URINE GLUCOSE NEGATIVE NEGATIVE [facility] URINE BILIRUBIN NEGATIVE NEGATIVE [facility] URINE KETONES NEGATIVE NEGATIVE [facility] URINE SPECIFIC GRAVITY 1.020 <=1.005 - >=1.030 [facility] URINE BLOOD NEGATIVE NEGATIVE [facility] URINE PH 7.0 5.0 - 8.5 [facility] URINE PROTEIN Negative Negative [facility] URINE UROBILINOGEN 0.2 0.2 - 1.0 E.U./dL [facility] URINE NITRITE NEGATIVE NEGATIVE [facility] URINE LEUKOCYTES NEGATIVE NEGATIVE [facility] URINE COLOR YELLOW STRAW, YELLOW [facility] ODOR URINE Abnormal(A) Normal [facility] CLARITY OF URINE CLEAR CLEAR [facility] Urine Urine specimen / Unknown 11/19/2024 4:18 PM EDT Derek Padilla PA-C LAB URINE AMBULATORY Final R esult [facility] * MEDICATIONS SCANNED DOCUMENT (10/23/2024 3:00 AM EDT) 10/23/2024 3:00 AM EDT Deb ACEVES SCAN MEDS OTHER ORDERS Final Res ult * OTHER ORDERS SCANNED DOCUMENT (10/06/2024 3:00 AM EDT) 10/06/2024 3:00 AM EDT Deb ACEVES SCAN OTHER ORDERS Final Result * (ABNORMAL) THYROID PANEL WITH TSH (07/30/2024 11:18 AM EDT) T-3 UPTAKE 36(H) 22 - 35 % [facility] T-4 (THYROXINE), TOTAL 6.2 4.9 - 10.5 mcg/dL [facility] FREE T4 INDEX (T7) 2.2 1.4 - 3.8 [facility] TSH 5.01(H) 0.40 - 4.50 mIU/L [facility] Blood Blood / Unknown 07/30/2024 1 1:18 AM EDT 07/30/2024 11:19 AM EDT Amanda Dang MD LAB - BLOOD DRAW Final Result [facility] [address] [address], [employer] [facility] [address] [place] [address] from Last 3 Months or Most Recently Relevant to Health Maintenance Insurance [place] Care Teams Reel Fed Printer Relationship Specialty Start Date End Date Deb Harp PA [address] [place] [address] PCP - General Primary Care 06/21/23
--- OUTSIDE RECORDS SUMMARY | 2025-01-05 18:32 | XMS_ITS | Clinical Summary ---
Author Organization [facility] Address [address] [address] Phone Care Team Providers Care Quarantine Inspector Name Role Phone Deb Harp Primary Care Provider [phone] Allergies Active Allergy Reactions Criticality Noted Date Comments Valsartan Other (see comments) 07/26/2022 hyponatremia Medications tamsulosin (FLOMAX) 0.4 MG 24 hr capsule Take 0.8 mg by mouth 1 (one) time each day 07/21/19 23 Active predniSONE (DELTASONE) 20 MG tablet Take 15 mg by mouth in the morning and 15 mg in the evening. Active pantoprazole (PROTONIX) 40 MG EC tablet Take 40 mg by mouth 07/21/19 23 Active levothyroxine (SYNTHROID, LEVOTHROID) 25 MCG tablet Take 25 mcg by mouth 07/21/19 23 Active cyanocobalamin (VITAMIN B-12) 1000 MCG tablet Take 1,000 mcg by mouth in the morning. Active atorvastatin (LIPITOR) 10 MG tablet Take 10 mg by mouth 07/21/19 23 Active ALPRAZolam (XANAX) 0.25 MG tablet Take 0.25 mg by mouth 07/21/19 23 Active acetaminophen (TYLENOL) 325 MG tablet Take 650 mg by mouth 07/25/19 23 Active pyridostigmine (MESTINON) 60 MG tablet Take 60 mg by mouth in the morning and 60 mg in the evening and 60 mg before bedtime. Active cetirizine (ZyrTEC) 10 MG tablet Take 10 mg by mouth in the morning. 08/09/19 23 Active valsartan (Diovan) 40 MG tablet Take 1 tablet (40 mg total) by mouth 1 (one) time each day 30 tablet 11 11/12/19 24 Active Additional Information Patient taking differently:40 mg Oral2 times daily, Morning, Evening,20 mg in the morning 40 mg in the evening, Reported on 12/31/2024 sodium chloride 1 g tablet Take 1 tablet (1 g total) by mouth in the morning and 1 tablet (1 g total) at noon and 1 tablet (1 g total) in the evening. 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 [address] [address] Walter Falk MD Syndrome of inappropriate vasopressin secretion (HCC) (Primary Dx); Hyponatremia 11/28/2024 Refill [facility] [address] [address] Walter Falk MD from Last 3 Months Immunizations Immunization Administration Dates Next Due SARS-CoV-2, Unspecified 11/29/2021 Family History Relation Status Comments Father Mother Social History Tobacco Use Types Packs/Day Years [...] Office Visit [facility] [address] [address] Walter Falk MD [address] [address] Health Maintenance Due Date Last Done Comments Pneumococcal Vaccine: 50+ Ye ars (1 of 2 - PCV) 1959 Influenza Vaccine Completed 11/19/2024 Hepatitis B Vaccine Aged Out No longe r eligible based on patient's age to complete this topic Procedures Procedure Name Priority Date/Time Associated Diagnosis Comments URIC ACID Routine 01/03/2025 10:22 AM EDT Syndrome of inappropriate vasopressin secretion (HCC) Hyponatremia OSMOLALITY, URINE Routine 01/03/2025 10: 22 AM EDT Syndrome of inappropriate vasopressin secretion (HCC) Hyponatremia RENAL FUNCTION PANEL Routine 01/03/2025 10:22 AM EDT Syndrome of inappropriate vasopressin secretion (HCC) Hyponatremia from Last 3 Months Results * Uric acid (01/03/2025 10:22 AM EDT) Uric Acid 4.9 3.8 - 8.4 mg/dL [facility] Comment:Therapeutic target f or gout patients: <6.0 Blood Venous blood / Unknown 01/03/2025 10:22 AM EDT 01/03/2025 us Walter Falk MD LAB BLOOD ORDERABLES Final Re sult [facility] [address] [place] [address] * (ABNORMAL) Renal function panel (01/03/2025 10:22 AM EDT) Glucose 88 70 - 99 mg/dL [facility] BUN 14 8 - 27 mg/dL [facility] Creatinine 1.25 0.76 - 1.27 mg/dL [facility] eGFR CKD-EPI CR 2020 57(L) >59 mL/min/1.7 3 [facility] BUN/Creatinine Ratio 11 10 - 24 [facility] Sodium 133(L) 134 - 144 mmol/L [facility] Potassium 4.8 3.5 - 5.2 mmol/L [facility] Chloride 98 96 - 106 mmol/L [facility] Bicarbonate (CO2) 23 20 - 29 mmol/L [facility] Calcium 8.7 8.6 - 10.2 mg/dL [facility] Phosphorus 3.8 2.8 - 4.1 mg/dL [facility] Albumin 4.4 3.7 - 4.7 g/dL [facility] Blood Venous blood / Unknown 01/03/2025 10:22 AM EDT 01/03/2025 Walter Falk MD LAB BLOOD ORDERABLES Final Re sult [facility] [address] [place] [address] from Last 3 Months Insurance [place] Care Teams Quarantine Inspector Relationship Specialty Start Date End Date Deb Harp [address] [place] [address] PCP - General 11/12/23
== END 2025-01-05 15:33 | disposition home or self-care (01) ==
LOC: HO.HSM 14:41
PROVIDERS: PCP Nurse Practitioner Family; Referring Provider Internal Medicine; Visit Provider Psychiatry & Neurology Neurology
DX: G70.00 Myasthenia gravis without (acute) exacerbation (principal); G62.9 Polyneuropathy, unspecified
CPT/HCPCS: 99214

== ENCOUNTER → 2025-01-05 14:41 | Outpatient (BNVA) | payer MEDICAID, SELFPAY | PROVIDERS: PCP Nurse Practitioner Family; Referring Provider Internal Medicine; Visit Provider Psychiatry & Neurology Neurology | DX: G70.00 Myasthenia gravis without (acute) exacerbation (principal); G62.9 Polyneuropathy, unspecified | CPT/HCPCS: 99212 ==